=== PATIENT | female | born 1990 | race Caucasian/White ===

== ENCOUNTER 2016-09-16 21:42 | Emergency (ER) | payer MEDICAID ==
[2016-09-16] MEDS ORDERED: NACL 0.9% 500 ML 500 ML IV ONE (22:14)
[2016-09-16] MEDS ORDERED: TYLENOL PO ONE (22:23)
[2016-09-16] MEDS ORDERED: TYLENOL ONE (22:23)
[2016-09-16 22:40] LABS: Basophils % (Auto) 0.2 % (0.0-1.8); Eosinophils % (Auto) 0.3 % (0.0-4.3); Hemoglobin 12.7 gm/dl (10.1-14.3); Mean Corpuscular HGB Conc 34 % (30-34); Mean Corpuscular Hemoglobin 31 pg (28-32); Mean Corpuscular Volume 90 fl (79-97); Platelet Count 274 K/mm3 (140-440); Red Cell Distribution Width 12.7 % (13.2-15.2); White Blood Count 10.5 K/mm3 (4.5-11.0)
[2016-09-16 22:49] LABS: INR 1.18 (0.87-1.13)
[2016-09-16 22:52] LABS: Alanine Aminotransferase 13 units/L (7-56); Albumin 3.8 g/dL (3.9-5); Albumin/Globulin Ratio 1.2 %; Alkaline Phosphatase 116 units/L (35-129); Anion Gap 17 mmol/L; Blood Urea Nitrogen 4 mg/dL (7-17); Calcium 9.4 mg/dL (8.4-10.2); Carbon Dioxide 23 mmol/L (22-30); Chloride 96.7 mmol/L (98-107); Glucose 87 mg/dL (65-100); Lipase 32 units/L (13-60); Potassium 4.1 mmol/L (3.6-5.0); Sodium 133 mmol/L (137-145); Total Protein 7.1 g/dL (6.3-8.2)
[2016-09-17 01:48] LABS: Bacteria,Urine 1+ /HPF (Negative); Bilirubin,Urine NEG (Negative); Blood,Urine SM (Negative); Ketones,Urine NEG (Negative); Leukocyte Esterase,Urine LG (Negative); Mucus,Urine FEW /HPF; Nitrite,Urine NEG (Negative); Protein,Urine <15 mg/dL mg/dL (Negative); Urobilinogen,Urine < 2.0 mg/dL (<2.0)
[2016-09-17] MEDS ORDERED: NACL 0.9% 1000 ML 1,000 ML ONE ×2 (04:44→08:49)
[2016-09-17] MEDS ORDERED: ROCEPHIN/NS 1 GM/50 ML 1 GM/50 ML BAG IV ONE (06:16)
[2016-09-17] MEDS ORDERED: TORADOL IV ONE (06:22)
[2016-09-17] MEDS ORDERED: ZOFRAN IV ONE (06:22)
[2016-09-17] MEDS ORDERED: PEPCID IV ONE (06:28)
--- NOTE | 2016-09-17 06:44 | Emergency Department Report ---
ED Abdominal Pain HPI - General Chief Complaint: Abdominal Pain Stated Complaint: HEADACHE/STOMACH PAIN Time Seen by Provider: 09/17/16 06:14 Source: patient Mode of arrival: Ambulatory Limitations: No Limitations - History of Present Illness Initial Comments: 26-year-old female with no significant past medical history presents to the hospital complaining of abdominal pain, nausea, vomiting, diarrhea 5 days. Pain is sharp, intermittent, and maximum at the epigastric area but is generalized. Positive chills reported with decreased by mouth intake. She dysuria, recent travel, or sick contacts. Pt has hx of 3 previous pregnancies, has 2 children, history of one miscarriage, and is currently on Depo. Denies previous surgeries. Patient states her [facility] doctor is affiliated with [employer] Severity scale (0 -10): 10 - Related Data Previous Rx's Medication Instructions Recorded Last Taken Type Ciprofloxacin HCl [Ciprofloxacin 500 mg PO BID #20 tablet 01/07/16 Unknown Rx TAB] oxyCODONE /ACETAMINOPHEN [Percocet 1 tab PO Q6HR PRN #20 tablet 01/07/16 Unknown Rx 5/325] Acetaminophen [Acetaminophen ER 650 mg PO Q8HR PRN #30 tablet.er 09/17/16 Unknown Rx TAB] Nitrofurantoin [place]/M-Cryst 100 mg PO Q12HR #14 capsule 09/17/16 Unknown Rx [Macrobid CAP] Ondansetron [Zofran Odt] 4 mg PO Q8HR #20 tab.rapdis 09/17/16 Unknown Rx Vit W-Ca,Fe,FA(<1 mg) 1 each PO DAILY #30 tablet 09/17/16 Unknown Rx [ Vitamins] Allergies Allergy/AdvReac Type Severity Reaction Status Date / Time No Known Allergies Allergy Unverified 03/16/13 11:33 ED Review of Systems ROS: Stated complaint: HEADACHE/STOMACH PAIN Other details as noted in HPI Comment: All other systems reviewed and negative Other: Constitutional: Positive chills Eyes: No eye pain visual changes ENT: No ear pain or throat pain Neck: Denies pain Respiratory: Denies cough wheezing shortness of breath Cardiovascular: Denies chest pain, palpitations, syncope GI: As per HPI : Denies dysuria Musculoskeletal: Denies back pain Skin: Denies rash, lesions, erythema Neurologic: Positive headache Psychiatric: Denies suicidal ideation, hallucinations ED Past Medical Hx - Past Medical History Previous Medical History?: No - Surgical History Past Surgical History?: No - Social History Smoking Status: Never Smoker - Medications Home Medications: Home Medications Medication Instructions Recorded Confirmed Last Taken Type Ciprofloxacin HCl [Ciprofloxacin 500 mg PO BID #20 tablet 01/07/16 Unknown Rx TAB] oxyCODONE /ACETAMINOPHEN [Percocet 1 tab PO Q6HR PRN #20 tablet 01/07/16 Unknown Rx 5/325] Acetaminophen [Acetaminophen ER 650 mg PO Q8HR PRN #30 tablet.er 09/17/16 Unknown Rx TAB] Nitrofurantoin [place]/M-Cryst 100 mg PO Q12HR #14 capsule 09/17/16 Unknown Rx [Macrobid CAP] Ondansetron [Zofran Odt] 4 mg PO Q8HR #20 tab.rapdis 09/17/16 Unknown Rx Vit W-Ca,Fe,FA(<1 mg) 1 each PO DAILY #30 tablet 09/17/16 Unknown Rx [ Vitamins] ED Physical Exam - General Limitations: No Limitations - Other Other exam information: General: No limitations, patient is alert in no acute distress Head exam: Atraumatic, normocephalic Eyes exam: Normal appearance ENT: Moist mucous membrane, normal oropharynx Neck exam: Normal inspection, full range of motion Respiratory exam: Clear to auscultation bilateral, no wheezes, rales, crackles Cardiovascular: Mild tachycardia that increases with sitting up in the bed Abdomen: Soft, nondistended, generalized tenderness maximal at epigastric area and left lower quadrant, with normal bowel sounds, no rebound, or guarding Extremity: Full range of motion normal inspection no deformity Back: Normal Inspection, full range of motion, no tenderness Neurologic: Alert, oriented x3, cranial nerves intact, no motor or sensory deficit Psychiatric: normal affect, normal mood Skin: Warm, dry, intact ED Course Vital Signs 09/16/16 09/17/16 22:07 08:10 Temperature 100 F H Pulse Rate 115 H 101 H Respiratory 18 21 Rate Blood Pressure 116/81 97/62 O2 Sat by Pulse 100 97 Oximetry - Reevaluation(s) Reevaluation #1: 09/17/16 08:50 Patient received Tylenol, and normal saline prior to my evaluation. I also ordered Pepcid, Zofran, and Toradol (which was canceled once positive test however, due to delay in transmittion of cancelled order in [facility]). Prer Toradol safety profile it is advised to be used cautiously in the first trimester and to avoid use starting to 30 week gestation. Patient reports feeling better but remains tachycardic on a monitor. Additionally, normal saline ordered. Patient also received IV Rocephin for UTI - Consultations Consultation #1: 09/17/16 10:24 case d/w Infection Prevention Practitioner covering Dr Funk activities therapist. I provided patient's name for outpatient follow-up ED Medical Decision Making - Lab Data Result diagrams: 09/16/16 22:12 09/16/16 22:12 Lab Results 09/16/16 09/16/16 09/16/16 Range/Units 22:12 22:12 22:16 WBC 10.5 (4.5-11.0) K/mm3 RBC 4.10 (3.65-5.03) M/mm3 Hgb 12.7 (10.1-14.3) gm/dl Hct 37.0 (30.3-42.9) % MCV 90 (79-97) fl MCH 31 (28-32) pg MCHC 34 (30-34) % RDW 12.7 L (13.2-15.2) % Plt Count 274 (140-440) K/mm3 Lymph % (Auto) 8.4 L (13.4-35.0) % [place] % (Auto) 5.8 (0.0-7.3) % Eos % (Auto) 0.3 (0.0-4.3) % Baso % (Auto) 0.2 (0.0-1.8) % Lymph # 0.9 L (1.2-5.4) K/mm3 [place] # 0.6 (0.0-0.8) K/mm3 Eos # 0.0 (0.0-0.4) K/mm3 Baso # 0.0 (0.0-0.1) K/mm3 Seg Neutrophils % 85.3 H (40.0-70.0) % Seg Neutrophils # 8.9 H (1.8-7.7) K/mm3 PT 14.9 (12.2-14.9) Sec. INR 1.18 H (0.87-1.13) VBG pH (7.320-7.420) Sodium 133 L (137-145) mmol/L Potassium 4.1 (3.6-5.0) mmol/L Chloride 96.7 L (98-107) mmol/L Carbon Dioxide 23 (22-30) mmol/L Anion Gap 17 mmol/L BUN 4 L (7-17) mg/dL Creatinine 0.5 L (0.7-1.2) mg/dL Estimated GFR > 60 ml/min BUN/Creatinine Ratio 8.00 % Glucose 87 (65-100) mg/dL Lactic Acid (0.7-2.0) mmol/L Calcium 9.4 (8.4-10.2) mg/dL Total Bilirubin 0.80 (0.1-1.2) mg/dL AST 13 (5-40) units/L ALT 13 (7-56) units/L Alkaline Phosphatase 116 (35-129) units/L Total Protein 7.1 (6.3-8.2) g/dL Albumin 3.8 L (3.9-5) g/dL Albumin/Globulin Ratio 1.2 % Lipase 32 (13-60) units/L HCG, Quant (0-4) mIU/mL Urine Color (Yellow) Urine Turbidity (Clear) Urine pH (5.0-7.0) Ur Specific [place] (1.003-1.030) Urine Protein (Negative) mg/dL Urine Glucose (UA) (Negative) mg/dL Urine Ketones (Negative) mg/dL Urine Blood (Negative) Urine Nitrite (Negative) Urine Bilirubin (Negative) Urine Urobilinogen (<2.0) mg/dL Ur Leukocyte Esterase (Negative) Urine WBC (Auto) (0.0-6.0) /HPF Urine RBC (Auto) (0.0-6.0) /HPF U Epithel Cells (Auto) (0-13.0) /HPF Urine Bacteria (Auto) (Negative) /HPF Urine Mucus /HPF Urine HCG, Qual (Negative) 09/16/16 09/16/16 09/17/16 Range/Units 22:16 22:16 00:55 WBC (4.5-11.0) K/mm3 RBC (3.65-5.03) M/mm3 Hgb (10.1-14.3) gm/dl Hct (30.3-42.9) % MCV (79-97) fl MCH (28-32) pg MCHC (30-34) % RDW (13.2-15.2) % Plt Count (140-440) K/mm3 Lymph % (Auto) (13.4-35.0) % [place] % (Auto) (0.0-7.3) % Eos % (Auto) (0.0-4.3) % Baso % (Auto) (0.0-1.8) % Lymph # (1.2-5.4) K/mm3 [place] # (0.0-0.8) K/mm3 Eos # (0.0-0.4) K/mm3 Baso # (0.0-0.1) K/mm3 Seg Neutrophils % (40.0-70.0) % Seg Neutrophils # (1.8-7.7) K/mm3 PT (12.2-14.9) Sec. INR (0.87-1.13) VBG pH 7.390 (7.320-7.420) Sodium (137-145) mmol/L Potassium (3.6-5.0) mmol/L Chloride (98-107) mmol/L Carbon Dioxide (22-30) mmol/L Anion Gap mmol/L BUN (7-17) mg/dL Creatinine (0.7-1.2) mg/dL Estimated GFR ml/min BUN/Creatinine Ratio % Glucose (65-100) mg/dL Lactic Acid 0.90 (0.7-2.0) mmol/L Calcium (8.4-10.2) mg/dL Total Bilirubin (0.1-1.2) mg/dL AST (5-40) units/L ALT (7-56) units/L Alkaline Phosphatase (35-129) units/L Total Protein (6.3-8.2) g/dL Albumin (3.9-5) g/dL Albumin/Globulin Ratio % Lipase (13-60) units/L HCG, Quant (0-4) mIU/mL Urine Color Yellow (Yellow) Urine Turbidity Clear (Clear) Urine pH 6.0 (5.0-7.0) Ur Specific [place] 1.002 L (1.003-1.030) Urine Protein <15 mg/dl (Negative) mg/dL Urine Glucose (UA) Neg (Negative) mg/dL Urine Ketones Neg (Negative) mg/dL Urine Blood Sm (Negative) Urine Nitrite Neg (Negative) Urine Bilirubin Neg (Negative) Urine Urobilinogen < 2.0 (<2.0) mg/dL Ur Leukocyte Esterase Lg (Negative) Urine WBC (Auto) 12.0 H (0.0-6.0) /HPF Urine RBC (Auto) 3.0 (0.0-6.0) /HPF U Epithel Cells (Auto) 1.0 (0-13.0) /HPF Urine Bacteria (Auto) 1+ (Negative) /HPF Urine Mucus Few /HPF Urine HCG, Qual (Negative) 09/17/16 09/17/16 09/17/16 Range/Units 00:55 01:15 06:45 WBC (4.5-11.0) K/mm3 RBC (3.65-5.03) M/mm3 Hgb (10.1-14.3) gm/dl Hct (30.3-42.9) % MCV (79-97) fl MCH (28-32) pg MCHC (30-34) % RDW (13.2-15.2) % Plt Count (140-440) K/mm3 Lymph % (Auto) (13.4-35.0) % [place] % (Auto) (0.0-7.3) % Eos % (Auto) (0.0-4.3) % Baso % (Auto) (0.0-1.8) % Lymph # (1.2-5.4) K/mm3 [place] # (0.0-0.8) K/mm3 Eos # (0.0-0.4) K/mm3 Baso # (0.0-0.1) K/mm3 Seg Neutrophils % (40.0-70.0) % Seg Neutrophils # (1.8-7.7) K/mm3 PT (12.2-14.9) Sec. INR (0.87-1.13) VBG pH (7.320-7.420) Sodium (137-145) mmol/L Potassium (3.6-5.0) mmol/L Chloride (98-107) mmol/L Carbon Dioxide (22-30) mmol/L Anion Gap mmol/L BUN (7-17) mg/dL Creatinine (0.7-1.2) mg/dL Estimated GFR ml/min BUN/Creatinine Ratio % Glucose (65-100) mg/dL Lactic Acid 1.00 (0.7-2.0) mmol/L Calcium (8.4-10.2) mg/dL Total Bilirubin (0.1-1.2) mg/dL AST (5-40) units/L ALT (7-56) units/L Alkaline Phosphatase (35-129) units/L Total Protein (6.3-8.2) g/dL Albumin (3.9-5) g/dL Albumin/Globulin Ratio % Lipase (13-60) units/L HCG, Quant 01679 H (0-4) mIU/mL Urine Color (Yellow) Urine Turbidity (Clear) Urine pH (5.0-7.0) Ur Specific [place] (1.003-1.030) Urine Protein (Negative) mg/dL Urine Glucose (UA) (Negative) mg/dL Urine Ketones (Negative) mg/dL Urine Blood (Negative) Urine Nitrite (Negative) Urine Bilirubin (Negative) Urine Urobilinogen (<2.0) mg/dL Ur Leukocyte Esterase (Negative) Urine WBC (Auto) (0.0-6.0) /HPF Urine RBC (Auto) (0.0-6.0) /HPF U Epithel Cells (Auto) (0-13.0) /HPF Urine Bacteria (Auto) (Negative) /HPF Urine Mucus /HPF Urine HCG, Qual Positive A (Negative) - Radiology Data Radiology results: report reviewed ultrasound: Viable single IUP oh weeks 4 days heart 116 Abdominal ultrasound: Unremarkable - Medical Decision Making Patient has mild dehydration secondary to nausea, vomiting and diarrhea. Diagnosis includes gastroenteritis as well as . Case discussed with her [facility] group. Outpatient follow-up will be encouraged. Symptomatic treatment will be provided. Heart rate less than 100 with IV fluid hydration - Differential Diagnosis ectopic , , gastroenteritis, appendicitis, UTI Critical Care Time: No Critical care attestation.: If time is entered above; I have spent that time in minutes in the direct care of this critically ill patient, excluding procedure time. ED Disposition Clinical Impression: Gastroenteritis, 12 weeks gestation of , UTI (urinary tract infection) Disposition: TO HOME OR SELFCARE Is pt being admited?: No Does the pt Need Aspirin: No Condition: Stable Instructions: (ED), Urinary Tract Infection in Women (ED), Gastroenteritis (ED) Additional Instructions: Take the medication as prescribed. Follow-up with the [facility] doctor. Return if symptoms worsen. Prescriptions: Acetaminophen [Acetaminophen ER TAB] 650 mg PO Q8HR PRN #30 tablet.er PRN Reason: Pain Nitrofurantoin [place]/M-Cryst [Macrobid CAP] 100 mg PO Q12HR #14 capsule Ondansetron [Zofran Odt] 4 mg PO Q8HR #20 tab.rapdis Vit W-Ca,Fe,FA(<1 mg) [ Vitamins] 1 each PO DAILY #30 tablet Referrals: HEATH JEROME APRN-BC [Primary Care Provider] - 3-5 Days Time of Disposition: 10:25
[2016-09-17] MEDS ORDERED: TORADOL ONE (07:39)
[2016-09-17 08:19] VITALS: BP 97/62
--- NOTE | 2016-09-17 08:35 | Ultrasound Report ---
ULTRASOUND ABDOMEN COMPLETE: Technique: Transabdominal ultrasound with color Doppler interrogation. History: Vomiting, abdominal pain. Findings: The liver is normal size, contour and echotexture. The gallbladder dimensions are within normal limits without intraluminal stone, wall thickening, or pericholecystic fluid. The CBD is normal caliber. The visualized portions of the pancreas including the head and proximal body are within normal limits. The kidneys demonstrate no hydronephrosis or mass. Cortical thickness and echogenicity are within normal limits bilaterally. The spleen and aorta are within normal limits. No aneurysmal dilatation is noted. No ascites. The bladder is unremarkable. IMPRESSION: Unremarkable abdominal ultrasound.
--- NOTE | 2016-09-17 08:37 | Ultrasound Report ---
ULTRASOUND OB LESS THAN 14 WEEKS FETUS HISTORY: Vomiting during . FINDINGS: Transabdominal ultrasound imaging was performed. A single, viable intrauterine is identified with heart rate measuring 166 beats per minute. [place]-rump length measures 61.7 mm which correlates with a 12 week, 4 day . Estimated due date 03/28/17. The placenta appears to be forming posteriorly. No subplacental collection. Qualitative amniotic fluid is normal. The ovaries are normal size, contour and echotexture. No adnexal cyst or mass is identified. No pelvic fluid collection. IMPRESSION: Viable, single intrauterine as outlined above. No acute abnormality is detected.
[2016-09-17] MEDS ORDERED: NACL 0.9% 1000 ML 1,000 ML IV ONE (08:50)
--- NOTE | 2016-09-17 09:36 | XRay Report ---
AP chest x-ray. History: Sepsis. Findings: The heart and pulmonary vessels are normal. A small granuloma is seen projected over the left hilar region. Otherwise, the lungs are clear. There is no pleural fluid. Impression: No acute findings.
== END 2016-09-17 10:42 | disposition home or self-care (01) ==
LOC: ED 21:42
DX: O26.891 Other specified pregnancy related conditions, first trimester (principal); O23.31 Infections of other parts of urinary tract in pregnancy, first trimester; K52.89 Other specified noninfective gastroenteritis and colitis; Z3A.12 12 weeks gestation of pregnancy
CPT/HCPCS: 36415; 71010; 76700; 76801; 80053; 81001; 81025; 82140; 82805; 83690; 84702; 85025; 85610; 87040; 87086; 96361; 96365; 96375; 99285; J0696; J1885; J2405; J7030; 96376

== ENCOUNTER 2017-03-17 07:53 | Outpatient (CLI) | payer MEDICAID ==
[2017-03-17 08:24] VITALS: BP 108/73
[2017-03-17 08:38] LABS: Bilirubin,Urine NEG (Negative); Blood,Urine NEG (Negative); Ketones,Urine NEG (Negative); Leukocyte Esterase,Urine LG (Negative); Mucus,Urine 1+ /HPF; Nitrite,Urine NEG (Negative)
[2017-03-17] MEDS ORDERED: TYLENOL PO ONE (09:00)
--- NOTE | 2017-03-18 07:36 | Ultrasound Report ---
ULTRASOUND OB LIMITED History: well being Technique: Transabdominal ultrasound with Doppler interrogation. Gestation: Single Position: Cephalic Amniotic Fluid: Normal TIFFANY = 19.6 cm Heart Rate: 123 BPM
--- NOTE | 2017-03-18 07:36 | Ultrasound Report ---
ULTRASOUND BIOPHYSICAL PROFILE: History: well being Technique: Transabdominal ultrasound with Doppler interrogation. 2 - breathing movements 2 - movements 2 - posture and tone 2 - Qualitative amniotic fluid volume 8 - TOTAL SCORE OF POSSIBLE 8 Heart Rate (bpm) 128
== END 2017-03-17 09:40 | disposition home or self-care (01) ==
LOC: TRG 07:53
PROVIDERS: ATTEND Obstetrics & Gynecology
DX: O47.1 False labor at or after 37 completed weeks of gestation (principal); Z3A.38 38 weeks gestation of pregnancy
CPT/HCPCS: 59025; 76815; 76819; 81001

== ENCOUNTER 2017-03-18 12:37 | Inpatient (IN) | payer MEDICAID ==
[2017-03-18] MEDS ORDERED: SUBLIMAZE IV PRN (13:33)
[2017-03-18] MEDS ORDERED: PITOCin/NS 20 UNIT/1000ML DRIP 20 UNITS/1,000 ML BAG IV SCH ×2 (14:00→15:00)
[2017-03-18] MEDS ORDERED: BRETHINE IVP PRN (14:14)
[2017-03-18] MEDS ORDERED: ePHEDrine SULFATE IV PRN ×2 (14:14→17:09)
[2017-03-18] MEDS ORDERED: MINERAL OIL PO PRN (14:14)
[2017-03-18] MEDS ORDERED: NARCAN 0.4 MG/1 ML IV PRN (14:14)
[2017-03-18] MEDS ORDERED: BRETHINE SUB-Q PRN (14:14)
[2017-03-18] MEDS ORDERED: STADOL IV PRN (14:14)
[2017-03-18] MEDS ORDERED: XYLOCAINE 2% INFILTRATI ONE (14:14)
[2017-03-18] MEDS ORDERED: ZOFRAN IV PRN (14:14)
[2017-03-18] MEDS: LACTATED RINGERS 1,000 ML IV SCH ×3 (14:16→16:40)
[2017-03-18] MEDS: PITOCin/NS 30 UNIT/500ML 30 UNITS/500 ML BAG IV SCH ×2 (14:16→19:23)
--- NOTE | 2017-03-18 14:39 | History and Physical Report ---
History of Present Illness Date of examination: 03/18/17 Date of admission: 03/18/17 12:37 Chief complaint: Intense Labor pains History of present illness: Early entry to care, 2nd trimester complicated by Sinus Infection treated with a Z-Pack. Third trimester complicated by asymptomatic anemia, taking FeSo4. Past History Past Medical History: no pertinent history Past Surgical History: [employer]/uterine surgery (D&C following a SAB) Family/Genetic History: hypertension (father) Social history: no significant social history, single - Obstetrical History Expected Date of Delivery: 03/28/17 Actual Gestation: 38 Week(s) 4 Day(s) : 5 Para: 2 Hx # Term Pregnancies: 2 Spontaneous Abortions: 2 Number of Living Children: 2 #1 Infant Gender: Male year: 2,[birth year] Birthweight: 3.175 kg Method of Delivery: Vaginal Gestational age at delivery: 40 Complications: none #2 Gender: Male year: 2,013 Birthweight: 3.629 kg Method of Delivery: Vaginal Gestational age at delivery: 40 Medications and Allergies Allergies Allergy/AdvReac Type Severity Reaction Status Date / Time No Known Allergies Allergy Verified 03/17/17 07:55 Home Medications Medication Instructions Recorded Confirmed Last Taken Type Vit Calc,Iron,Folic 1 each PO DAILY #30 tablet 09/17/16 03/17/17 21:00 Rx [ Vitamins] 1 Active Meds: Active Medications Butorphanol Tartrate (Stadol) 2 mg IV Q2H PRN PRN Reason: Pain , Severe (7-10) Ephedrine Sulfate (Ephedrine Sulfate) 10 mg IV Q2M PRN PRN Reason: Hypotension Fentanyl (Sublimaze) 100 mcg IV Q2H PRN PRN Reason: Labor Pain Lactated Ringer's (Lactated Ringers) 1,000 mls @ 125 mls/hr IV DIRECT CHRISTINA Last Admin: 03/18/17 14:16 Dose: 125 mls/hr Oxytocin/Sodium Chloride (Pitocin/Ns 20 Unit/1000ml Drip) 20 units in 1,000 mls @ 0 mls/hr IV DIRECT CHRISTINA PRN Reason: As Directed Oxytocin/Sodium Chloride (Pitocin/Ns 30 Unit/500ml) 30 units in 500 mls @ 4 mls /hr IV TITR CHRISTINA PRN Reason: Protocol Last Admin: 03/18/17 14:16 Dose: 4 ml/hr, 4 mls/hr Lactated Ringer's (Lactated Ringers) 1,000 mls @ 125 mls/hr IV DIRECT CHRISTINA Oxytocin/Sodium Chloride (Pitocin/Ns 20 Unit/1000ml Drip) 20 units in 1,000 mls @ 125 mls/hr IV DIRECT CHRISTINA Influenza Virus Vaccine Quadrival (Fluarix Quad [id number](36 Mos+) 0.5 ml IM .ONCE ONE Stop: 03/19/17 12:01 Mineral Oil (Mineral Oil) 30 ml PO QHS PRN PRN Reason: Constipation Naloxone HCl (Narcan 0.4 Mg/1 Ml) 0.1 mg IV Q2MIN PRN PRN Reason: Res Rate </= 8 or 02 SAT < 92% Ondansetron HCl (Zofran) 4 mg IV Q8H PRN PRN Reason: Nausea And Vomiting Terbutaline Sulfate (Brethine) 0.25 mg SUB-Q ONCE PRN PRN Reason: Hyperstimulation/Hypertonicity Terbutaline Sulfate (Brethine) 0.25 mg IVP ONCE PRN PRN Reason: Hyperstimulation/Hypertonicity Review of Systems All systems: negative - Vital Signs Vital signs: Vital Signs Pulse BP 121 H 110/76 03/18/17 13:12 03/18/17 13:12 Temp Pulse Resp BP Pulse Ox 98.4 F 100 H 16 120/78 99 03/18/17 13:18 03/18/17 14:36 03/18/17 13:18 03/18/17 14:36 03/18/17 14:35 - Physical Exam Breasts: Positive: normal Cardiovascular: Regular rate Lungs: Positive: Clear to auscultation, Normal air movement Abdomen: Positive: normal appearance, soft, normal bowel sounds Genitourinary (Female): Positive: normal external genitalia, normal perenium Vagina: Positive: normal moisture Uterus: Positive: enlarged Anus/Rectum: Positive: normal perianal skin Extremities: Positive: normal - Obstetrical FHR: category 1 Uterine Contraction Monitor Mode: External Cervical Dilatation: 5 (Copious Amount of Clear fluid upon AROM at 1425) Cervical Effacement Percentage: 70 station: -2 Uterine Contraction Pattern: Irregular Uterine Contraction Intensity: Moderate Results All other labs normal. Assessment and Plan A: IUP @39 4/7 Weeks Active labor Category I Tracing GBS Negtive P: Admit to L&D per Routine Orders Pitocin Augmentation AROM
[2017-03-18] MEDS ORDERED: LACTATED RINGERS 1,000 ML IV SCH (15:00)
[2017-03-18 15:04] LABS: Hematocrit 32.2 % (30.3-42.9); Hemoglobin 10.3 gm/dl (10.1-14.3); Mean Corpuscular HGB Conc 32 % (30-34); Mean Corpuscular Volume 79 fl (79-97); Platelet Count 321 K/mm3 (140-440); Red Blood Count 4.06 M/mm3 (3.65-5.03); Red Cell Distribution Width 15.4 % (13.2-15.2); White Blood Count 8.4 K/mm3 (4.5-11.0)
[2017-03-18 15:05] LABS: Mean Corpuscular Hemoglobin 25 pg (28-32)
[2017-03-18] MEDS ORDERED: NARCAN 2 MG/2 ML IV PRN (17:09)
--- NOTE | 2017-03-18 17:09 | Anesthesia Consultation ---
Anesthesia Consult and Med Hx Date of service: 03/18/17 - Airway Anesthetic Teeth Evaluation: Good ROM Head & Neck: Adequate Mental/Hyoid Distance: Adequate Mallampati Class: Class II Intubation Access Assessment: Probably Good - Cardiac Exam Cardiac Exam: RRR - Pre-Operative Health Status ASA Pre-Surgery Classification: ASA2 Proposed Anesthetic Plan: Epidural (CSE for labor, [id number]), Spinal - Pulmonary Hx Asthma: No COPD: No Hx Pneumonia: No - Cardiovascular System Hx Hypertension: No - Central Nervous System Hx Seizures: No Hx Psychiatric Problems: No - Endocrine Hx Renal Disease: No Hx End Stage Renal Disease: No Hx Hypothyroidism: No Hx Hyperthyroidism: No - Hematic Hx Anemia: Yes Hx Sickle Cell Disease: No - Other Systems Hx Alcohol Use: No
[2017-03-18] MEDS ORDERED: fentaNYL-BUPIV 2 MCG/ML-0.125% 200 MCG/100 ML BAG EPIDURAL SCH (18:00)
[2017-03-18] MEDS ORDERED: DULCOLAX PR PRN (21:31)
[2017-03-18] MEDS ORDERED: NORCO 5/325 PO PRN (21:31)
[2017-03-18] MEDS ORDERED: LANSINOH TP PRN (21:31)
[2017-03-18] MEDS ORDERED: MILK OF MAGNESIA PO PRN (21:31)
[2017-03-18] MEDS ORDERED: TUCKS PAD TP PRN (21:31)
[2017-03-18] MEDS ORDERED: BENADRYL PO PRN (21:31)
--- NOTE | 2017-03-18 21:39 | Procedure Note ---
OB Delivery Note - Delivery Date of Delivery: 03/18/17 (2112) Surgeon: SASCHA CAMPUZANO Estimated blood loss: 200cc - Vaginal Delivery presentation: vertex Delivery position: OA Intrapartum events: none Delivery induction: none Delivery augmentation: rupture of membranes, pitocin Delivery monitor: external FHT, external uterine Route of delivery: Delivery placenta: spontaneous Delivery cord: nuchal cord, 3 umbilical vessels Episiotomy: none Delivery laceration: none Anesthesia: epidural Delivery comments: of a live 7'8 female infant over a intact perineum under epidural anesthesia with Apgars of 8 and 9 at 2113 on 03/18/2017. Very tight nuchal cord x 1, double clamped and cut on the perineum prior to delivery of the anterior shoulder. Spontaneous delivery of placenta complete and intact with Chen side presenting at 2116. Fundus is firm and midline located 4 below the U. Lochia is scant. Cord blood collected. - Infant A at 1 minute: 8 at 5 minutes: 9 Gender: Female (7'8)
[2017-03-18] MEDS ORDERED: SODIUM CHLORIDE FLUSH SYRINGE 10 ML IV NR (22:00)
[2017-03-19] MEDS: MOTRIN PO SCH ×4 (00:07→17:50)
[2017-03-19 09:42] LABS: Hematocrit 27.4 % (30.3-42.9); Hemoglobin 8.8 gm/dl (10.1-14.3)
--- NOTE | 2017-03-19 10:07 | Progress Note ---
Assessment and Plan A: PP Day #1 Asymptomatic Anemia P: Follow Routine Orders Infed 100mg IM X 1 dose Ferrous Sulfate 325mg PO BID; continue @ home Depo Provera prior to discharge D/C Home in the AM RTO in Six Weeks Subjective - Subjective Date of service: 03/19/17 Interval history: Early entry to care, 2nd trimester complicated by Sinus Infection treated with a Z-Pack. Third trimester complicated by asymptomatic anemia, taking FeSo4. Patient reports: appetite normal, voiding normally, pain well controlled, flatus , ambulating normally : doing well, bottle feeding Objective - Vital Signs Latest vital signs: Vital Signs Temp Pulse Resp BP BP Pulse Ox 03/19/17 07:56 98.1 F 80 18 94/66 03/19/17 06:36 18 03/19/17 05:36 16 03/19/17 01:07 18 03/19/17 01:00 98.6 F 71 16 106/68 03/19/17 00:07 18 03/18/17 23:07 95 H 98 03/18/17 23:02 104 H 98 03/18/17 22:57 105 H 111/69 98 03/18/17 22:52 101 H 98 03/18/17 22:47 118 H 99 03/18/17 22:42 100 H 105/61 99 03/18/17 22:37 100 H 100 03/18/17 22:32 87 100 03/18/17 22:27 97 H 110/59 100 03/18/17 22:22 97 H 99 03/18/17 22:17 89 100 03/18/17 22:13 85 114/55 03/18/17 22:12 88 100 03/18/17 22:07 107 H 100 03/18/17 22:02 88 100 03/18/17 21:57 104 H 100 03/18/17 21:52 105 H 100 03/18/17 21:47 91 H 100 03/18/17 21:42 102 H 99 03/18/17 21:40 99.3 F 95 H 18 105/65 99 03/18/17 21:37 97 H 105/65 03/18/17 21:31 98 H 100 03/18/17 21:30 110 H 93 03/18/17 21:26 111 H 99 03/18/17 21:21 98 H 99 03/18/17 21:16 94 H 100 03/18/17 21:11 109 H 100 03/18/17 21:08 99 H 116/78 03/18/17 21:06 97 H 99 03/18/17 21:01 92 H 100 03/18/17 20:56 100 H 100 03/18/17 20:51 109 H 99 03/18/17 20:46 92 H 100 03/18/17 20:41 125 H 99 03/18/17 20:38 103 H 99/59 03/18/17 20:36 95 H 100 03/18/17 20:31 95 H 99 03/18/17 20:26 100 H 100 03/18/17 20:21 92 H 100 03/18/17 20:16 88 100 03/18/17 20:11 118 H 99 03/18/17 20:07 101 H 92/55 03/18/17 20:06 102 H 100 03/18/17 20:01 88 100 03/18/17 19:56 86 100 03/18/17 19:51 99 H 99 03/18/17 19:46 87 100 03/18/17 19:41 87 100 03/18/17 19:38 88 92/50 03/18/17 19:36 94 H 100 03/18/17 19:31 93 H 100 03/18/17 19:26 109 H 100 03/18/17 19:21 89 100 03/18/17 19:16 85 100 03/18/17 19:11 89 100 03/18/17 19:10 98.9 F 99 H 18 93/51 100 03/18/17 19:07 83 93/51 03/18/17 19:06 102 H 98 03/18/17 19:01 93 H 100 03/18/17 18:56 98 H 100 03/18/17 18:51 96 H 100 03/18/17 18:49 97 H 100/58 03/18/17 18:46 92 H 100 03/18/17 18:41 97 H 100 03/18/17 18:36 92 H 100 03/18/17 18:33 103 H 103/67 03/18/17 18:31 90 99 03/18/17 18:26 90 99 03/18/17 18:21 102 H 100 03/18/17 18:18 95 H 99/65 03/18/17 18:16 104 H 98 03/18/17 18:11 109 H 98 03/18/17 18:06 109 H 98 03/18/17 18:04 105 H 105/64 03/18/17 18:01 101 H 99 03/18/17 17:56 104 H 98 03/18/17 17:51 107 H 98 03/18/17 17:46 103 H 103/67 98 03/18/17 17:44 86 100/62 03/18/17 17:42 80 93/54 03/18/17 17:41 87 98 03/18/17 17:40 107 H 97/64 03/18/17 17:38 93 H 108/64 03/18/17 17:36 105 H 103/67 99 03/18/17 17:34 106 H 106/68 03/18/17 17:32 94 H 112/80 03/18/17 17:31 108 H 99 03/18/17 17:30 104 H 105/74 03/18/17 17:28 107 H 106/72 03/18/17 17:26 96 H 106/68 99 03/18/17 17:24 90 112/70 03/18/17 17:22 88 103/67 03/18/17 17:21 86 100 03/18/17 17:20 93 H 105/68 03/18/17 17:18 96 H 112/69 03/18/17 17:16 89 106/68 100 03/18/17 17:14 117 H 103/66 03/18/17 17:12 120 H 99/62 03/18/17 17:11 115 H 100 03/18/17 17:10 97 H 111/68 03/18/17 17:08 91 H 111/68 03/18/17 17:06 115 H 104/67 100 03/18/17 17:04 97 H 103/67 03/18/17 17:02 95 H 107/70 03/18/17 17:01 94 H 99 03/18/17 17:00 74 103/71 84 03/18/17 16:58 106 H 102/63 03/18/17 16:56 108 H 102/62 100 03/18/17 16:54 109 H 104/62 03/18/17 16:51 110 H 100 03/18/17 16:46 117 H 100 03/18/17 16:41 115 H 100 03/18/17 16:36 93 H 106/63 100 03/18/17 16:25 105 H 100 03/18/17 16:20 97 H 100 03/18/17 16:15 99 H 100 03/18/17 16:10 101 H 100 03/18/17 16:05 102 H 100 03/18/17 16:00 98 H 100 03/18/17 15:55 104 H 100 03/18/17 15:50 100 H 100 03/18/17 15:45 100 H 100 03/18/17 15:40 103 H 99 03/18/17 15:39 104 H 90/51 03/18/17 15:35 104 H 85/50 99 03/18/17 15:30 103 H 99 03/18/17 15:25 111 H 99 03/18/17 15:20 108 H 98 03/18/17 15:15 99 H 98 03/18/17 15:10 101 H 97 03/18/17 15:05 89 96 03/18/17 15:00 101 H 97 03/18/17 14:55 99 H 98 03/18/17 14:50 103 H 98 03/18/17 14:45 107 H 97 03/18/17 14:40 95 H 98 03/18/17 14:36 100 H 120/78 03/18/17 14:35 114 H 99 03/18/17 14:30 118 H 100 03/18/17 14:25 123 H 99 03/18/17 14:20 110 H 99 03/18/17 14:15 120 H 98 03/18/17 14:10 114 H 99 03/18/17 14:05 103 H 98 03/18/17 14:00 113 H 98 03/18/17 13:55 108 H 98 03/18/17 13:50 108 H 98 03/18/17 13:45 112 H 98 03/18/17 13:40 102 H 99 03/18/17 13:35 109 H 109/70 03/18/17 13:34 102 H 112/69 03/18/17 13:18 98.4 F 16 03/18/17 13:12 121 H 110/76 Intake and Output 1203/19/17 03/19/17 22:59 06:59 14:59 Intake Total 340.800 300 Output Total 1000 Balance -659.200 300 Intake: IV 340.800 Lactated Ringers 1,000 ml 300.000 @ 125 mls/hr IV DIRECT CHRISTINA Rx#:[id number] PITOCin/NS 30 UNIT/500ML 40.8 30 units In 500 ml @ 4 mls/hr IV TITR CHRISTINA Rx#: [id number] Intake, Free Water 300 Output: Urine 1000 Indwelling Catheter 1000 Other: Total, Output Amount 1000 # Voids Void 1 Estimated Blood Loss 200 - Exam Breasts: Present: normal Cardiovascular: Present: Regular rate Lungs: Present: Clear to auscultation, Normal air movement Abdomen: Present: normal appearance, soft, normal bowel sounds Uterus: Present: normal, firm, fundal height below umbilicus Extremities: Present: normal - Labs Labs: Abnormal lab results 03/18/17 03/19/17 Range/Units 13:45 09:25 Hgb 8.8 L (10.1-14.3) gm/dl Hct 27.4 L (30.3-42.9) % MCH 25 L (28-32) pg RDW 15.4 H (13.2-15.2) %
--- NOTE | 2017-03-19 10:10 | Discharge Summary ---
Providers - Providers Date of Admission: 03/18/17 12:37 Date of discharge: 03/20/17 Attending physician: CHAIM MATAMOROS MD Primary care physician: CHAIM MATAMOROS MD Hospitalization Reason for admission: active labor Delivery: Episiotomy: none Laceration: none Other procedures: none complications: none Discharge diagnosis: IUP at term delivered [place] baby: female Condition at discharge: Good Disposition: DC-01 TO HOME OR SELFCARE Plan - Provider Discharge Summary Activity: routine, no sex for 6 weeks, no heavy lifting 4 weeks, no strenuous exercise Diet: routine Instructions: routine Additional instructions: [] Smoking cessation referral if applicable(refer to patient education folder for contact #) [] Refer to [facility]'s [facility] Booklet Call your doctor immediately for: * Fever > 100.5 * Heavy vaginal bleeding ( >1 pad per hour) * Severe persistent headache * Shortness of breath * Reddened, hot, painful area to leg or breast * Drainage or odor from incision. * Keep incision clean and dry at all times and follow doctor's instructions regarding bathing/showering - Follow up plan Follow up: CHAIM MATAMOROS MD [Primary Care Provider] - 6 Weeks
[2017-03-19] MEDS ORDERED: DEPO-PROVERA (CONTRACEPTION) IM NR (11:00)
[2017-03-19] MEDS ORDERED: INFED IM NR (12:00)
[2017-03-19] MEDS ORDERED: Fluarix Quad 2017-2018(36 MOS+ IM ONE (12:00)
[2017-03-19] MEDS: FEOSOL PO SCH (22:16)
[2017-03-20] MEDS: MOTRIN PO SCH ×2 (00:17→11:30)
[2017-03-20] MEDS ORDERED: BOOSTRIX IM ONE (05:00)
[2017-03-20] MEDS: FEOSOL PO SCH (10:50)
[2017-03-20 10:54] VITALS: BP 107/70
== END 2017-03-20 11:50 | disposition home or self-care (01) | DRG 775 ==
LOC: LD 12:37 → OB 03-19 00:01
PROVIDERS: ADMIT Obstetrics & Gynecology; ATTEND Obstetrics & Gynecology
PROC: 10E0XZZ Delivery of Products of Conception, External Approach (ICD-10-PCS; principal; 2017-03-18)
PROC: 3E0234Z Introduction of Serum, Toxoid and Vaccine into Muscle, Percutaneous Approach (ICD-10-PCS; 2017-03-18)
PROC: 3E0R3BZ Introduction of Anesthetic Agent into Spinal Canal, Percutaneous Approach (ICD-10-PCS; 2017-03-18)
PROC: 00HU33Z Insertion of Infusion Device into Spinal Canal, Percutaneous Approach (ICD-10-PCS; 2017-03-18)
DX: O69.1XX0 Labor and delivery complicated by cord around neck, with compression, not applicable or unspecified (principal); O99.02 Anemia complicating childbirth; D64.9 Anemia, unspecified; Z3A.38 38 weeks gestation of pregnancy; Z37.0 Single live birth; Z82.49 Family history of ischemic heart disease and other diseases of the circulatory system; Z23 Encounter for immunization
CPT/HCPCS: 36415; 85014; 85018; 85027; 86592; 86850; 86900; 86901; 90471; 90715; J1050; J1750; J2590; J3010; J7120

== ENCOUNTER 2021-01-17 09:47 | Emergency (ER) | payer MEDICAID ==
[2021-01-17] MEDS ORDERED: ACETAMINOPHEN W/CODEINE 300-30 MG TAB PO ONE (10:51)
[2021-01-17] MEDS ORDERED: ACETAMINOPHEN 325 MG TAB PO ONE (10:51)
--- NOTE | 2021-01-17 10:56 | Emergency Department Report ---
ED General Adult HPI - General Chief complaint: Abdominal Pain Stated complaint: 6WKS PREG CRAMPING/VOMITING/SELWYN Time Seen by Provider: 01/17/21 10:40 Source: patient Mode of arrival: Ambulatory Limitations: No Limitations - History of Present Illness Initial comments: 30-year-old female patient presents with complaints of lower abdominal pain and cramping starting today. Patient states she is 6 weeks . She has not seen her ROLL RECLAIMER to this point but does currently follow with 1. She is G5, . She denies any vaginal bleeding, dysuria/hematuria/urinary frequency, vaginal discharge, dyspareunia, or fever/chills/sweats. No other prior medical history per patient. She rates her current pain as a 9/10 in severity - Related Data Home Medications Medication Instructions Recorded Confirmed Last Taken Ferrous Sulfate [Iron] 1 tab PO QDAY 03/18/17 03/18/17 03/18/17 10:00 Previous Rx's Medication Instructions Recorded Last Taken Type Vit Calc,Iron,Folic 1 each PO DAILY #30 tablet 09/17/16 03/18/17 10:00 Rx [ Vitamins] Allergies Allergy/AdvReac Type Severity Reaction Status Date / Time No Known Allergies Allergy Verified 03/17/17 07:55 ED Review of Systems ROS: Stated complaint: 6WKS PREG CRAMPING/VOMITING/SELWYN Other details as noted in HPI Constitutional: denies: chills, fever, malaise Respiratory: denies: cough, shortness of breath Cardiovascular: denies: chest pain Gastrointestinal: abdominal pain, nausea. denies: vomiting, diarrhea, const ipation, hematemesis, melena Genitourinary: denies: urgency, dysuria, frequency, hematuria, discharge, abnormal menses, dyspareunia Musculoskeletal: denies: back pain Neurological: denies: headache ED Past Medical Hx - Past Medical History Previous Medical History?: No Hx Hypertension: No Hx Congestive Heart Failure: No Hx Diabetes: No Hx Deep Vein Thrombosis: No Hx Renal Disease: No Hx Sickle Cell Disease: No Hx Seizures: No Hx Asthma: No Hx COPD: No Hx HIV: No - Surgical History Past Surgical History?: No - Social History Smoking Status: Never Smoker - Medications Home Medications: Home Medications Medication Instructions Recorded Confirmed Last Taken Type Vit Calc,Iron,Folic 1 each PO DAILY #30 tablet 09/17/16 03/18/17 03/18/17 10:00 Rx [ Vitamins] Ferrous Sulfate [Iron] 1 tab PO QDAY 03/18/17 03/18/17 03/18/17 10:00 History ED Physical Exam - General Limitations: No Limitations General appearance: alert, in no apparent distress - Head Head exam: Present: atraumatic, normocephalic - Eye Eye exam: Present: normal appearance. Absent: scleral icterus - Neck Neck exam: Present: normal inspection - Respiratory Respiratory exam: Present: normal lung sounds bilaterally. Absent: respiratory distress - Cardiovascular Cardiovascular Exam: Present: regular rate, normal rhythm. Absent: systolic murmur, diastolic murmur, rubs, gallop - GI/Abdominal GI/Abdominal exam: Present: soft, tenderness (Suprapubic), normal bowel sounds. Absent: distended, rebound, rigid - Extremities Exam Extremities exam: Present: full ROM - Back Exam Back exam: Present: full ROM - Neurological Exam Neurological exam: Present: alert, oriented X3, normal gait - Psychiatric Psychiatric exam: Present: normal affect, normal mood - Skin Skin exam: Present: warm, dry, intact, normal color. Absent: rash, cyanosis, diaphoretic ED Course Vital Signs 01/17/21 01/17/21 01/17/21 10:11 11:12 13:39 Temperature 98.8 F 98.5 F Pulse Rate 99 H 104 H Respiratory 16 12 Rate Blood Pressure 114/70 Blood Pressure 113/68 [Left] O2 Sat by Pulse 99 100 100 Oximetry 01/17/21 15:39 Temperature 98.0 F Pulse Rate 94 H Respiratory 12 Rate Blood Pressure Blood Pressure 121/63 [Left] O2 Sat by Pulse 100 Oximetry ED Medical Decision Making - Lab Data Result diagrams: 01/17/21 11:44 01/17/21 11:44 - Medical Decision Making 30-year-old female patient presents with complaints of lower abdominal pain and cramping starting today. Patient states she is 6 weeks . She has not seen her ROLL RECLAIMER to this point but does currently follow with 1. She is G5, . She denies any vaginal bleeding, dysuria/hematuria/urinary frequency, vaginal discharge, dyspareunia, or fever/chills/sweats. No other prior medical history per patient. She rates her current pain as a 9/10 in severity No significant abnormalities noted on labs. UA is normal. Ultrasound shows viable 6-week 1 day IUP without any complications. Patient states her pain has resolved with meds given here in the ED. She reports she has a follow-up with her ROLL RECLAIMER on Thursday of this coming week. She is well-appearing, her vitals are normal, she is stable for discharge home. Discussed pelvic rest and signs and symptoms that should prompt immediate return to the emergency department in detail patient verbalizes understanding. Critical care attestation.: If time is entered above; I have spent that time in minutes in the direct care o f this critically ill patient, excluding procedure time. ED Disposition Clinical Impression: Abdominal pain during Disposition: HOME / SELF CARE / HOMELESS Is pt being admited?: No Condition: Stable Instructions: Abdominal Pain During , [id number], Activity Restriction During , Abdominal Pain (ED) Referrals: [facility] [Provider Group] - 2-3 Days
[2021-01-17] MEDS ORDERED: PROMETHAZINE 12.5 MG/10 ML ORAL LIQD PO SCH (11:30)
[2021-01-17 12:16] LABS: Basophils % (Auto) 0.4 % (0.0-1.8); Eosinophils % (Auto) 0.4 % (0.0-4.3); Hematocrit 38.2 % (30.3-42.9); Hemoglobin 13.2 gm/dl (10.1-14.3); Lymphocytes % (Auto) 9.3 % (13.4-35.0); Mean Corpuscular HGB Conc 35 % (30-34); Mean Corpuscular Volume 92 fl (79-97); Monocytes # (Auto) 0.3 K/mm3 (0.0-0.8); Monocytes % (Auto) 2.9 % (0.0-7.3); Platelet Count 302 K/mm3 (140-440); Red Blood Count 4.15 M/mm3 (3.65-5.03); Red Cell Distribution Width 13.1 % (13.2-15.2)
[2021-01-17 12:39] LABS: Alanine Aminotransferase 11 units/L (7-56); Albumin 4.3 g/dL (3.9-5); Blood Urea Nitrogen 6 mg/dL (7-17); Calcium 9.1 mg/dL (8.4-10.2); Hemolysis Index 11
[2021-01-17 12:41] LABS: BUN/Creatinine Ratio 12
[2021-01-17 15:14] LABS: Bacteria,Urine 1+ /HPF (Negative); Bilirubin,Urine NEG (Negative); Blood,Urine NEG (Negative); Color,Urine Yellow (Yellow); Mucus,Urine FEW /HPF; Protein,Urine <15 mg/dL mg/dL (Negative); Urobilinogen,Urine < 2.0 mg/dL (<2.0); WBC,Urine < 1.0 /HPF (0.0-6.0)
[2021-01-17 15:28] LABS: RBC,Urine < 1.0 /HPF (0.0-6.0)
[2021-01-17 15:40] VITALS: BP 121/63
--- NOTE | 2021-01-18 07:33 | Ultrasound Report ---
ULTRASOUND OBSTETRIC INDICATION / CLINICAL INFORMATION: pain in . Clinical Gestational Age (GA): 6.5 weeks.days TECHNIQUE: Transabdominal and Transvaginal. COMPARISON: None available. FINDINGS: GESTATIONAL SAC: Well-defined oval shape and intrauterine in location. YOLK SAC: No significant abnormality. EMBRYO/FETUS: No significant abnormality. - [place]-Rump Length = 0.4 cm = 6.1 weeks.days - Heart Rate, beats per minute (if present) = 1:15 ADNEXA: Corpus luteum cyst seen in the right ovary. FREE FLUID: None. ADDITIONAL FINDINGS: None. IMPRESSION: 1. Single, living intrauterine with estimated sonographic age of 6.1 weeks.days. Signer Name: Elia Caballero MD Signed: 01/17/2021 11:58 AM Workstation Name: [id number]
--- NOTE | 2021-01-18 07:33 | Ultrasound Report ---
ULTRASOUND OBSTETRIC INDICATION / CLINICAL INFORMATION: pain in . Clinical Gestational Age (GA): 6.5 weeks.days TECHNIQUE: Transabdominal and Transvaginal. COMPARISON: None available. FINDINGS: GESTATIONAL SAC: Well-defined oval shape and intrauterine in location. YOLK SAC: No significant abnormality. EMBRYO/FETUS: No significant abnormality. - [place]-Rump Length = 0.4 cm = 6.1 weeks.days - Heart Rate, beats per minute (if present) = 1:15 ADNEXA: Corpus luteum cyst seen in the right ovary. FREE FLUID: None. ADDITIONAL FINDINGS: None. IMPRESSION: 1. Single, living intrauterine with estimated sonographic age of 6.1 weeks.days. Signer Name: Elia Caballero MD Signed: 01/17/2021 11:58 AM Workstation Name: [id number]
== END 2021-01-17 15:41 | disposition home or self-care (01) ==
LOC: ED 09:47
DX: O26.891 Other specified pregnancy related conditions, first trimester (principal); R10.30 Lower abdominal pain, unspecified; Z3A.01 Less than 8 weeks gestation of pregnancy
CPT/HCPCS: 36415; 76801; 76817; 80053; 81001; 84702; 85025; 99284; Q0169

== ENCOUNTER 2021-09-10 11:25 | Inpatient (IN) | payer MEDICAID ==
[2021-09-10] MEDS ORDERED: OXYTOCIN 10 UNIT/1 ML INJ IM PRN (11:54)
[2021-09-10] MEDS ORDERED: LIDOCAINE (2%) 20 MG/1 ML VIAL 20 ML MDV INFILTRATI NR (11:54)
[2021-09-10] MEDS ORDERED: ePHEDrine SULFATE 50 MG/1 ML INJ IV PRN ×2 (12:00→17:26)
[2021-09-10] MEDS ORDERED: LOPERAMIDE 2 MG CAP PO PRN (12:00)
[2021-09-10] MEDS ORDERED: NalbUPHINE 10 MG/1 ML INJ IV PRN (12:00)
[2021-09-10] MEDS ORDERED: LACTATED RINGERS 1,000 ML IV SCH (12:00)
[2021-09-10] MEDS ORDERED: CARBOPROST TROMETHAMINE 250 MCG/1 ML INJ IM PRN (12:00)
[2021-09-10] MEDS ORDERED: miSOPROStol 200 MCG TAB PR PRN (12:00)
[2021-09-10] MEDS ORDERED: METHYLERGONOVINE MALEATE 0.2 MG/ML VIAL IM PRN (12:00)
[2021-09-10] MEDS ORDERED: OXYTOCIN DRIP 30 UNITS/500 ML BAG IV SCH ×2 (12:00)
[2021-09-10] MEDS ORDERED: TERBUTALINE 1 MG/1 ML INJ SUB-Q PRN (12:00)
[2021-09-10] MEDS ORDERED: fentaNYL 100 MCG/2 ML INJ IV PRN (12:00)
[2021-09-10 12:46] LABS: Hemoglobin 10.1 gm/dl (10.1-14.3); Mean Corpuscular HGB Conc 33 % (30-34); Mean Corpuscular Volume 82 fl (79-97); Platelet Count 327 K/mm3 (140-440)
--- NOTE | 2021-09-10 13:27 | History and Physical Report ---
History of Present Illness Date of examination: 09/10/21 Date of admission: 09/10/21 11:25 Chief complaint: Decreased movement History of present illness: at 40.3wks by LMP c/w U/S. care at [facility]. Pt seen today in clinic and sent to hospital by EVELYNE Spencer with decreased movement and at that time pelvic 2cm. Pt admits to decreased movement since this morning and previous visit from triage here with TIFFANY 6.6cm and BPP 8/8; pt denies LOF, VB, or headache. Pt admits to intermittent ctx. labs with O positive, neg antibody screen, rubella equivocal and HepBsAg negative and HIV negative Abnormal 1hrgtt with normal 3hrgtt. GBS negative. Pt desires permanent sterilization with valid tubal papers Past History Past Medical History: no pertinent history Past Surgical History: no surgical history [employer] History: other (EAB x3) Social history: no significant social history - Obstetrical History Expected Date of Delivery: 09/07/21 Actual Gestation: 40 Week(s) 3 Day(s) : 7 Hx # Term Pregnancies: 3 Spontaneous Abortions: 3 Number of Living Children: 3 Medications and Allergies Allergies Allergy/AdvReac Type Severity Reaction Status Date / Time No Known Allergies Allergy Verified 03/17/17 07:55 Home Medications Medication Instructions Recorded Confirmed Last Taken Type Vit Calc,Iron,Folic 1 each PO DAILY #30 tablet 09/17/16 03/18/17 03/18/17 10:00 Rx [ Vitamins] Ferrous Sulfate [Iron] 1 tab PO QDAY 03/18/17 03/18/17 03/18/17 10:00 History Active Meds: Active Medications Carboprost Tromethamine (Carboprost Tromethamine 250 Mcg/1 Ml Inj) 250 mcg IM ONCE PRN PRN Reason: Uterine Bleeding Ephedrine Sulfate (Ephedrine Sulfate 50 Mg/1 Ml Inj) 10 mg IV Q2M PRN PRN Reason: Hypotension Fentanyl (Fentanyl 100 Mcg/2 Ml Inj) 100 mcg IV Q2H PRN PRN Reason: Pain,Severe (7-10) LABOR PAIN Oxytocin/Sodium Chloride (Pitocin/Ns 30 Unit/500ml) 30 units in 500 mls @ 2 mls/hr IV TITR CHRISTINA; Protocol Lactated Ringer's (Lactated Ringers) 1,000 mls @ 125 mls/hr IV DIRECT CHRISTINA Last Admin: 09/10/21 12:30 Dose: 125 mls/hr Oxytocin/Sodium Chloride (Pitocin/Ns 30 Unit/500ml) 30 units in 500 mls @ 40 mls/hr IV TITR CHRISTINA; Protocol Lidocaine (Lidocaine (2%) 20 Mg/1 Ml Vial 20 Ml Mdv) 20 ml INFILTRATI ONCE NR Stop: 09/10/21 15:00 Loperamide HCl (Loperamide 2 Mg Cap) 2 mg PO ONCE PRN PRN Reason: give with Hemabate Methylergonovine Maleate (Methylergonovine Maleate 0.2 Mg/Ml Vial) 0.2 mg IM ONCE PRN PRN Reason: Uterine Bleeding Mineral Oil (Mineral Oil 30 Ml Oral Liqd) 30 ml PO QHS PRN PRN Reason: Constipation Misoprostol (Misoprostol 200 Mcg Tab) 800 mcg [place] ONCE PRN PRN Reason: Uterine Bleeding Nalbuphine HCl (Nalbuphine 10 Mg/1 Ml Inj) 10 mg IV Q2H PRN PRN Reason: Pain, Moderate (4-6) Oxytocin (Oxytocin 10 Unit/1 Ml Inj) 10 unit IM ONCE PRN PRN Reason: Uterine Bleeding Terbutaline Sulfate (Terbutaline 1 Mg/1 Ml Inj) 0.25 mg SUB-Q ONCE PRN PRN Reason: Hyperstimulation/Hypertonicity Review of Systems All systems: negative (decreased FM) - Vital Signs Vital signs: Vital Signs Pulse Pulse Ox 110 H 97 09/10/21 11:50 09/10/21 11:50 Temp Pulse Resp BP Pulse Ox 98.8 F 100 H 20 118/78 97 09/10/21 11:55 09/10/21 12:55 09/10/21 11:55 09/10/21 11:55 09/10/21 12:55 - Physical Exam Breasts: Positive: deferred Cardiovascular: Regular rate Lungs: Positive: Normal air movement Abdomen: Positive: soft Genitourinary (Female): Positive: normal external genitalia Vagina: Positive: normal moisture Anus/Rectum: Positive: normal perianal skin - Obstetrical FHR: category 1 Uterine Contraction Monitor Mode: External Cervical Dilatation: 4.5 (prev 2cm in clinic) Cervical Effacement Percentage: 70 station: -2 Uterine Contraction Pattern: Irregular Uterine Contraction Intensity: Mild Results Result Diagrams: 09/10/21 12:18 Abnormal lab results 09/10/21 Range/Units 12:18 MCH 27 L (28-32) pg RDW 16.0 H (13.2-15.2) % All other labs normal. Assessment and Plan Term IUP, postdates with borderline TIFFANY and decreased FM in latent labor, GBS negative; Desires permanent sterilization 1. Admit to labor and delivery and augment with pitocin 2. Obtain missing HIV lab and draw same on admit today 3. May have IV pain med or epidural when desired 4. Expect
--- NOTE | 2021-09-10 16:14 | Event Note ---
Date: 09/10/21 pt evaluated and pelvic 5.5/80/-1 vtx and still intact. IV pitocin at 2mu/min; GBS neg; AROM done with clear amniotic fluid. Pt desires epidural and nurse present when pt requested same and will give IV bolus for same. Anticipate . FHR category I.
--- NOTE | 2021-09-10 17:25 | Anesthesia Consultation ---
Anesthesia Consult and Med Hx Date of service: 09/10/21 - Airway Anesthetic Teeth Evaluation: Good ROM Head & Neck: Adequate Mental/Hyoid Distance: Adequate Mallampati Class: Class II Intubation Access Assessment: Good - Pulmonary Exam CTA: Yes - Cardiac Exam Cardiac Exam: RRR - Pre-Operative Health Status ASA Pre-Surgery Classification: ASA2 Proposed Anesthetic Plan: Epidural - Pulmonary Hx Asthma: No COPD: No Hx Pneumonia: No - Cardiovascular System Hx Hypertension: No - Central Nervous System Hx Seizures: No Hx Psychiatric Problems: No - Endocrine Hx Renal Disease: No Hx End Stage Renal Disease: No Hx Hypothyroidism: No Hx Hyperthyroidism: No - Hematic Hx Anemia: Yes Hx Sickle Cell Disease: No - Other Systems Hx Alcohol Use: No
[2021-09-10] MEDS ORDERED: NALOXONE 0.4 MG/1 ML INJ IV PRN (17:26)
--- NOTE | 2021-09-10 17:26 | Progress Note ---
Labor Epidural - Labor Epidural Start Time: 17:05 Stop Time: 17:12 Performed by:: GEORGINA CHANEY Procedure: Patient is requesting epidural for labor and pain. H&P, labs were reviewed. Patient IDed, all questions and concerns were answered, and consent was signed. Timeout was performed at bedside. Patient in on r side position. Sterile prep and drape was performed. 3ml of 1% lidocaine skin wheal at L[3]- L [4]. 17- gauge Tuohy epidural needle was advanced to loss of resistance with air technique cm. Negative CSF negative blood. Epidural catheter advanced to [12] centimeters. [negative] Aspiration [negative] test dose. Sterile dressing applied. Patient tolerated procedure.
[2021-09-10] MEDS ORDERED: MINERAL OIL 30 ML ORAL LIQD ONE (17:27)
[2021-09-10] MEDS ORDERED: fentaNYL-BUPIV 2 MCG/ML-0.125% 200 MCG/100 ML BAG EPIDURAL SCH (18:00)
--- NOTE | 2021-09-10 18:02 | Procedure Note ---
OB Delivery Note - Delivery Date of Delivery: 09/10/21 Surgeon: ZOYA GRIMALDO Estimated blood loss: 200cc - Vaginal Delivery presentation: vertex Delivery position: OA Intrapartum events: other(please specify) (compound presentation with left posterior flexed arm, fingers to left cheek) Delivery induction: none Delivery augmentation: rupture of membranes, pitocin Delivery monitor: external FHT, external uterine Route of delivery: Delivery placenta: spontaneous Delivery cord: 3 umbilical vessels Episiotomy: none Delivery laceration: none Anesthesia: epidural Delivery comments: Pt complete immediately after receiving epidural and SAVD with left posterior arm flexed as she delivered. Pt pushed as instructed and left posterior flexed arm delivered by gravity and then I delivered anterior shoulder, body and feet and baby placed on pt's abdomen and suctioned by CALI nurse present as nurse requested to suction baby. Delay cord clamping done. Spontaneous delivery of calcified placenta with 3vessel cord and complete. Pt sustained no lacerations and fundus firm. Bimanual massage done and no vaginal or cervical lacerations seen. Mom and baby stable. - A at 1 minute: 8 at 5 minutes: 9 Gender: Male (wt 3610g; clear amniotic fluid; calcified placenta)
[2021-09-10] MEDS ORDERED: LANOLIN/ZINC/DIMETHICONE (LANSINOH) 7 GM TP PRN (20:23)
[2021-09-10] MEDS ORDERED: WITCH HAZEL/ GLYCERIN PAD TP PRN (20:23)
[2021-09-10] MEDS ORDERED: MAGNESIUM HYDROXIDE (MOM) ORAL LIQD UDC PO PRN (20:23)
[2021-09-10] MEDS ORDERED: ACETAMINOPHEN 325 MG TAB PO PRN (20:23)
[2021-09-10] MEDS ORDERED: oxyCODONE /ACETAMINOPHEN 5-325MG TAB PO PRN (20:23)
[2021-09-10] MEDS ORDERED: diphenhydrAMINE 25 MG CAP PO PRN (20:23)
[2021-09-10] MEDS ORDERED: BENZOCAINE/MENTHOL 20/0.5% TOP SPRAY 56 GM TP PRN (20:23)
[2021-09-10] MEDS ORDERED: PROMETHAZINE 25 MG RECT SUPP PR PRN (20:23)
[2021-09-10] MEDS ORDERED: PROMETHAZINE 25 MG TAB PO PRN (20:23)
[2021-09-10] MEDS ORDERED: ONDANSETRON 4 MG/2 ML INJ IV PRN (20:23)
[2021-09-10] MEDS: IBUPROFEN 800 MG TAB PO SCH (20:41)
[2021-09-10] MEDS ORDERED: MINERAL OIL 30 ML ORAL LIQD PO PRN (22:00)
[2021-09-11] MEDS: IBUPROFEN 800 MG TAB PO SCH ×3 (02:27→14:45)
--- NOTE | 2021-09-11 09:53 | Discharge Summary ---
Providers - Providers Date of Admission: 09/10/21 11:25 Date of discharge: 09/11/21 (After baby has been cleared) Attending physician: ZOYA Grimaldo Primary care physician: ZOYA GRIMALDO Hospitalization Reason for admission: active labor Delivery: Episiotomy: none Laceration: none complications: other (low blood pressure) Discharge diagnosis: IUP at term delivered [place] baby: male Condition at discharge: Good Disposition: 01 HOME / SELF CARE / HOMELESS Plan - Provider Discharge Summary Activity: routine, no sex for 6 weeks, no heavy lifting 4 weeks, no strenuous exercise Diet: routine Instructions: routine Additional instructions: [] Smoking cessation referral if applicable(refer to patient education folder for contact #) [] Refer to [facility]'s [facility] Booklet Call your doctor immediately for: * Fever > 100.5 * Heavy vaginal bleeding ( >1 pad per hour) * Severe persistent headache * Shortness of breath * Reddened, hot, painful area to leg or breast * Drainage or odor from incision. * Keep incision clean and dry at all times and follow doctor's instructions regarding bathing/showering - Follow up plan Follow up: ZOYA GRIMALDO MD [Primary Care Provider] - 6 Weeks
[2021-09-11] MEDS ORDERED: PRENATAL VIT27-FE FUMARATE-FOLIC ACID VIT TAB PO SCH (10:00)
[2021-09-11 12:53] LABS: Hematocrit 27.6 % (30.3-42.9); Hemoglobin 8.8 gm/dl (10.1-14.3); Mean Corpuscular HGB Conc 32 % (30-34); Mean Corpuscular Volume 82 fl (79-97); Platelet Count 312 K/mm3 (140-440); Red Blood Count 3.38 M/mm3 (3.65-5.03); Red Cell Distribution Width 16.1 % (13.2-15.2)
[2021-09-11 16:37] VITALS: BP 100/68
[2021-09-11] MEDS ORDERED: MEASLES, MUMPS & RUBELLA 12,500 UNIT/0.5 ML VACCINE SUB-Q ONE (20:00)
== END 2021-09-11 20:43 | disposition home or self-care (01) | DRG 775 ==
LOC: APU 11:25 → LD 12:58 → OB 20:37
PROVIDERS: ADMIT Obstetrics & Gynecology; ATTEND Obstetrics & Gynecology
PROC: 10E0XZZ Delivery of Products of Conception, External Approach (ICD-10-PCS; principal; 2021-09-10)
PROC: 3E0R3BZ Introduction of Anesthetic Agent into Spinal Canal, Percutaneous Approach (ICD-10-PCS; 2021-09-10)
PROC: 00HU33Z Insertion of Infusion Device into Spinal Canal, Percutaneous Approach (ICD-10-PCS; 2021-09-10)
PROC: 3E0134Z Introduction of Serum, Toxoid and Vaccine into Subcutaneous Tissue, Percutaneous Approach (ICD-10-PCS; 2021-09-11)
DX: O36.8130 Decreased fetal movements, third trimester, not applicable or unspecified (principal); Z37.0 Single live birth; Z20.822 Contact with and (suspected) exposure to COVID-19; Z3A.40 40 weeks gestation of pregnancy; O62.0 Primary inadequate contractions; O48.0 Post-term pregnancy; O32.6XX0 Maternal care for compound presentation, not applicable or unspecified; Z23 Encounter for immunization
CPT/HCPCS: 36415; 59025; 76815; 76819; 85027; 86592; 86850; 86900; 86901; 90707; 96360; 96361; 99211; G0378; G0463; J2590; J7120; U0003